=== PATIENT | male | born 1960 | race Caucasian/White ===

== ENCOUNTER 2022-12-19 15:07 | Observation (INO) ==
[2022-12-19 16:11] LABS: ABS Basophils 0.1 10^3/uL (0.0-0.1); ABS Eosinophils 0.1 10^3/uL (0.0-0.5); ABS Lymphocytes 1.5 10^3/uL (1.0-4.8); ABS Monocytes 0.9 10^3/uL (0.0-1.1); ABS Neutrophils 5.4 10^3/uL (1.5-7.6); Eosinophil % 1.6 %; Hematocrit 36.6 % (38-53); Hemoglobin 13.3 g/dL (13.2-16.3); Lymphocyte % 19.3 %; Mean Corpuscular Hemoglobin 33.9 pg (27-33); Mean Corpuscular Hgb Conc 36.2 g/dL (31-36); Mean Corpuscular Volume 93.6 fL (80-97); Mean Platelet Volume 9.3 fL (7.5-11.2); Platelet Count 140 10^3/uL (150-450); Red Blood Count 3.91 10^6/uL (4.06-5.63); Red Cell Distribution Width 12.4 % (12-17)
[2022-12-19 16:18] LABS: Albumin/Globulin Ratio 1.7 (1-3); Creatinine, Serum 0.86 mg/dL (0.67-1.17); Globulin 2.4 g/dL (2-4); Magnesium 1.9 mg/dL (1.9-2.7); Potassium 3.8 mmol/L (3.5-5.0); Total Bilirubin 0.8 mg/dL (0.2-1.0); Total Protein 6.4 g/dL (6.4-8.9); eGFR CKD-EPI 96.7 (>60)
[2022-12-19 17:49] LABS: Urine Appearance Clear; Urine Bilirubin Negative (Negative); Urine Blood Negative (Negative); Urine Color Straw; Urine Glucose Negative (Negative); Urine Ketones Negative (Negative); Urine Nitrite Negative (Negative); Urine Protein Negative (Negative); Urine Specific Gravity 1.003 (1.002-1.030); Urine Urobilinogen Negative (Negative)
[2022-12-19] MEDS ORDERED: Iohexol 350 (CONTRAST) 500 ML MDV IV ONE (17:57)
[2022-12-19] MEDS ORDERED: Enoxaparin 40 MG/0.4 ML SYR SUBCUT SCH (20:00)
[2022-12-19] MEDS ORDERED: Furosemide 40 mg/4 ml IV VIAL IV SLOW PU ONE (20:40)
[2022-12-20 06:50] LABS: ABS Eosinophils 0.1 10^3/uL (0.0-0.5); ABS Lymphocytes 1.5 10^3/uL (1.0-4.8); ABS Monocytes 0.8 10^3/uL (0.0-1.1); ABS Neutrophils 4.4 10^3/uL (1.5-7.6); ABS Nucleated RBC 0.01 10^3/ul; Eosinophil % 2.1 %; Hematocrit 37.8 % (38-53); Hemoglobin 13.8 g/dL (13.2-16.3); Lymphocyte % 21.8 %; Mean Corpuscular Hgb Conc 36.4 g/dL (31-36); Mean Corpuscular Volume 93.3 fL (80-97); Mean Platelet Volume 9.7 fL (7.5-11.2); Nucleated Red Blood Cells % 0.1 /100 WBC (0.0-0.4); Platelet Count 162 10^3/uL (150-450); Red Blood Count 4.05 10^6/uL (4.06-5.63); Red Cell Distribution Width 12.4 % (12-17); White Blood Count 6.9 10^3/uL (3.6-10.2)
[2022-12-20 07:10] LABS: Albumin 3.9 g/dL (3.2-5.2); Albumin/Globulin Ratio 1.6 (1-3); Calcium 9.1 mg/dL (8.6-10.3); Creatinine, Serum 0.89 mg/dL (0.67-1.17); Globulin 2.5 g/dL (2-4); HDL Cholesterol 39.5 mg/dL; Potassium 3.4 mmol/L (3.5-5.0); Total Protein 6.4 g/dL (6.4-8.9); eGFR CKD-EPI 95.7 (>60)
[2022-12-20] MEDS ORDERED: KCL 20 MEQ/100 ML IVPREMIX 20 MEQ/100 ML BAG IV ONE (08:32)
[2022-12-20] MEDS ORDERED: Potassium Chlor 20 meq TAB.ER PO ONE (10:50)
[2022-12-20 13:13] VITALS: BP 116/54
== END 2022-12-20 12:57 | disposition home or self-care (01) ==
LOC: EDHOLD 15:07 → ED 15:07 → MEDTELE 23:20
PROVIDERS: ADMIT Internal Medicine; ATTEND Internal Medicine Hematology & Oncology